=== PATIENT | male | born 1985 | race Caucasian/White ===

== ENCOUNTER → 2018-03-28 12:00 | Outpatient (CLI) | payer OTHER, SELFPAY | PROVIDERS: Visit Provider Surgery | DX: Z53.9 Procedure and treatment not carried out, unspecified reason (principal) ==

== ENCOUNTER 2020-01-12 09:26 | Day surgery (SDC) | payer OTHER, SELFPAY ==
--- NOTE | 2020-01-12 | NASAL_PTH ---
PATIENT: HARPREET MARTINEZ [place] [facility] [id number] AGE/SX: 34/M ROOM: RE01/12/[address]: Dr. Juan Pablo Schneider MD : [id number] BED: DIS: 01/12/2020 SPEC #: [id number] RECD: 01/12/20 13:34 STATUS: CHASEFarideh NEGRON #: [id number] CASSY: 01/12/20 00:[address]: Juan Pablo Schneider DEPT: SURGICAL PATHOLOGY RECD BY: Luis Cordova ENTERED: 01/12/20 13:35 SP TYPE: NASAL SPEC OTHR DR: No Primary Care Phys Tissues: Nasal septum, NOS Procedures: Decalcification bone/plaque Surgery Specimen Level III HEADER OPERATION: Septoplasty PRE-OP DIAGNOSIS: Deviated nasal septum TISSUE SUBMITTED: Nasal septum contents MICROSCOPIC DIAGNOSIS Nasal septum contents: Pieces of bone and cartilage, clinically deviated nasal septum. SJ:franck 7/29/20 MICROSCOPIC DESCRIPTION Slides are reviewed. GROSS DESCRIPTION Received in fixative is one container labeled with the patient's name and designated nasal septal contents. The specimen consists of multiple fragments of bone and cartilage that in aggregate measure 4 x 3.5 x 1 cm. Acid Changer tissue is submitted in one cassette after decalcification. / SJ:franck 01/12/20 TC:5 CPT: 74618, 48159
[2020-01-12 10:06] VITALS: BP 128/82; PULSE 57; RESP 16; TEMP 36.8; O2SAT 100; BMI 23.0
[2020-01-12] MEDS: Lactated Ringers 1,000 ML 100 ML IV ×2 (10:23→13:26)
[2020-01-12] MEDS: Oxymetazoline 0.05% 1 SPRAY SPRAY.BTL 15 SPRAY (11:59)
[2020-01-12] MEDS: Lidocaine 4% 50 ML Bottle (11:59)
[2020-01-12] MEDS: Bacitracin 500 UNITS/GM PACKET (12:13)
--- NOTE | 2020-01-12 13:02 | DCINST_ITS ---
You will use the following diet at home:: No restrictions Discharge Activity: Return to Normal Activity, May not drive while taking narco tic pain medications. Call your doctor if your incision/area has: Sudden Increased Bleeding Call your doctor if you observe: Fever of 101 or Higher, Uncontrolled pain Allergies/Adverse Reactions: Allergies No Known Allergies Allergy (Verified 01/05/20 08:14) Medications to take at Discharge NK 02/16/18 Primary Care Physician: Care Physician,No Primary [Primary Care Provider] - Test Results: Test results from this visit will be discussed in further detail at your follow- up appointment, if applicable. Please Follow Up With: Juan Pablo Schneider MD When: 5 days
--- NOTE | 2020-01-12 13:09 | OP.PCM_ITS ---
Problem List (1) Deviated nasal septum Status: Chronic Report of Operation Date of Procedure: 01/12/20 Pre-Operative Diagnosis: Deviated nasal septum Post-Operative Diagnosis: Same Surgery/Procedure Performed:: Septoplasty Description of Surgical Findings:: Clayton is a 34-year-old male who presents for chronic nasal obstruction with significant nasal deformity secondary to nasal trauma in the past. Examination showed marketed nasal septal deviation resulting in obstruction of the left nostril as well as significant deformity of the upper lateral nasal cartilages and nasal asymmetry. The above procedure was offered for relief of these complaints and he is eager to proceed. The risk of coronavirus in this time with surgical procedures was discussed and he was agreeable to accept this risk in exchange for correction of his nasal obstruction complaint. The risks, alternatives, potential complications, and benefits were discussed at length and any questions answered to the patient and/or caregiver's satisfaction. Witnessed informed consent was obtained in the office, and the patient and/or caregiver was agreeable to proceed. Procedure went as follows: The patient was identified in the preoperative holding and brought to the operating room, was placed under general anesthesia and intubated. When appropriate anesthesia was obtained, pledgets soaked in a 50-50 mixture of oxymetazoline and 4% topical lidocaine were placed to decongest the nasal mucosa. The nasal septum was then injected beginning on the left side with 1% lidocaine with 100,000 epinephrine for a total of 4 mL. The pledgets were then removed and the left nasal cavity examined. There was noted to be significant nasal septal deviation to the left. Using a 15 blade scalpel, a hemitransfixion incision was then made on the left side and using the Anderson elevator a subperichondrial/periosteal flap was elevated. The septum was then transected at the bony cartilaginous junction and a similar flap raised on the contralateral side. Using a Anayeli forceps, the septum was then sharply transected superiorly and the deviated portions removed with a Hernesto forceps. This was noted to be markedly widened and ossified suggesting prior hematoma and ossification consistent with his history of injury. Any inferior bony spur was then removed with a chisel allowing for midline placement of the nasal septum. After reducing the high bony deformity of the nasal septum significant reduction in the torsion and displacement of the upper lateral nasal cartilages was noted and although the correction was imperfect greater symmetry of the external nose was able to be achieved by releasing the internal septal deformity. The hemitransfixion incision was then closed with interrupted 4-0 c hromic gut suture followed by a 4-0 plain quilting suture to reapproximate the mucosal flaps. Guevara splints coated with Bacitracin ointment were then applied to each nasal cavity and secured at the columella with a single 3-0 Prolene suture. An NG tube was then placed to decompress the stomach and the patient returned to anesthesia, revived and extubated having tolerated the procedure well. Type of Anesthesia:: General Anesthesiologist: Srikanth Riggs Special Medications: none Specimen's removed: nasal septal cartilage Estimated Blood Loss (mL): 50 mL Fluids Replaced: 1300 mL Grafts/Implants Used: Guevara splints - Complications none - Admit VTE Documentation VTE Present on Admission: No VTE Mechan Device Prophylaxis: SCD's VTE Pharm Prophylaxis ordered?: No
[2020-01-12 13:20] VITALS: BP 128/82; BP 137/81; PULSE 61; RESP 10; TEMP 36.3; O2SAT 99
[2020-01-12 13:30] VITALS: BP 116/77; BP 128/82; PULSE 71; RESP 16; O2SAT 99
[2020-01-12 13:45] VITALS: BP 111/57; BP 128/82; PULSE 48; RESP 16; O2SAT 100
[2020-01-12 13:50] VITALS: BP 124/74; BP 128/82; PULSE 52; RESP 16; TEMP 36.4; O2SAT 100
[2020-01-12 14:23] VITALS: BP 128/82; BP 130/72; PULSE 55; RESP 16; TEMP 36.1; O2SAT 100
== END 2020-01-12 14:25 | disposition home or self-care (01) ==
LOC: SDC 09:27 → AC 09:30
PROVIDERS: Anesthesiology; Referring Provider Otolaryngology; Visit Provider Otolaryngology
PROC: (CPT 30520; principal; 2020-01-12 10:55)
DX: J34.2 Deviated nasal septum (principal); M95.0 Acquired deformity of nose; Z87.891 Personal history of nicotine dependence
CPT/HCPCS: 30520; 87635; 88304; 88311; G2023; J7120; J2405; U0003